=== PATIENT | male | born 1955 | race Caucasian/White ===

== ENCOUNTER 2023-10-18 10:45 | Emergency (ER) | payer OTHER ==
[2023-10-18 11:45] LABS: BASOPHILS ABSOLUTE AUTO 0.04 K/uL (0.00-0.10); BASOPHILS PERCENT AUTO 0.6 % (0.1-1.3); EOSINOPHILS ABSOLUTE AUTO 0.04 K/uL (0.00-0.40); EOSINOPHILS PERCENT AUTO 0.6 % (0.0-5.4); HEMATOCRIT 41.1 % (38.4-49.7); HEMOGLOBIN 13.4 g/dL (12.9-16.9); IMMATURE GRAN ABSOLUTE AUTO 0.03 K/uL (0.00-0.23); IMMATURE GRAN PERCENT AUTO 0.4 % (0.0-0.7); LYMPHOCYTES ABSOLUTE AUTO 1.25 K/uL (0.8-3.3); LYMPHOCYTES PERCENT AUTO 18.2 % (11.4-47.7); MEAN CORPUSCULAR HEMOGLOBIN 32.5 pg (31.6-35.5); MEAN CORPUSCULAR HGB CONC 32.6 g/dL (31.6-35.5); MEAN CORPUSCULAR VOLUME 99.8 fL (81.4-99.0); MONOCYTES ABSOLUTE AUTO 0.93 K/uL (0.20-0.90); MONOCYTES PERCENT AUTO 13.5 % (3.3-12.6); NEUTROPHILS ABSOLUTE AUTO 4.59 K/uL (1.0-7.6); NEUTROPHILS PERCENT AUTO 66.7 % (40.0-78.1); PLATELET COUNT,PLT 235 K/uL (130-375); RED BLOOD CELL COUNT 4.12 M/uL (4.14-5.76); WHITE BLOOD CELL COUNT,WBC 6.9 K/uL (3.2-11.0)
[2023-10-18] MEDS: Furosemide 40 MG/4 ML VIAL IVPUSH ONE (11:55)
[2023-10-18] MEDS: Sodium Chloride 0.9% 1,000 ML IV SCH (11:56)
[2023-10-18 12:09] LABS: INR 1.2; PROTHROMBIN TIME 11.7 sec (9.2-10.6)
[2023-10-18 12:26] LABS: APPEARANCE,URINE CLEAR (CLEAR); BILIRUBIN,URINE SMALL (NEGATIVE); COLOR,URINE YELLOW (YELLOW); GLUCOSE,URINE 500 mg/dL (NEGATIVE); KETONES,URINE 80 mg/dL (NEGATIVE); LEUKOCYTE ESTERASE,URINE NEGATIVE (NEGATIVE); NITRITE,URINE NEGATIVE (NEGATIVE); OCCULT BLOOD,URINE NEGATIVE (NEGATIVE); PH,URINE 5.5 (5.0-8.0); PROTEIN,URINE TRACE mg/dL (NEGATIVE); UROBILINOGEN,URINE 0.2 EU/dL (0.2-1.0)
[2023-10-18 12:29] LABS: CORONAVIRUS COVID-19 NAA NEGATIVE (NEGATIVE); INFLUENZA A NAA NEGATIVE (NEGATIVE); INFLUENZA B NAA NEGATIVE (NEGATIVE); RESPIRATORY SYNCYTIAL VIR NAA NEGATIVE (NEGATIVE)
[2023-10-18 12:42] LABS: AMORPHOUS SEDIMENT,URINE NOT SEEN; BACTERIA,URINE NOT SEEN; EPITHELIAL CELLS,URINE NOT SEEN; MUCUS,URINE NOT SEEN; RBC,URINE 0-5 (0-5); WBC,URINE NOT SEEN (0-5)
[2023-10-18 12:44] LABS: ALANINE AMINOTRANSFERASE,ALT 33 U/L (12-78); ALBUMIN 3.1 g/dL (3.4-5.0); ALKALINE PHOSPHATASE 138 U/L (46-116); ASPARTATE AMNIOTRANSFERASE,AST 13 U/L (15-37); BILIRUBIN TOTAL 0.7 mg/dL (0.2-1.0); BLOOD UREA NITROGEN,BUN 19 mg/dL (7-18); CALCIUM 8.6 mg/dL (8.5-10.1); CARBON DIOXIDE,CO2 18 mmol/L (21-32); CHLORIDE,CL 95 mmol/L (100-108); POTASSIUM,K 4.4 mmol/L (3.6-5.2); PROTEIN TOTAL,TP 6.2 g/dL (6.4-8.2); SODIUM,NA 132 mmol/L (140-148)
[2023-10-18 12:54] LABS: CREATININE 1.3 mg/dL (0.8-1.3); EST CRCL DRUG DOSING (CG) 54.59 mL/min; ESTIMATED GFR 59 mL/min (>60)
[2023-10-18 12:57] LABS: ANION GAP 23.4 mmol/L (5.0-14.0)
[2023-10-18 12:58] LABS: GLUCOSE RANDOM 440 mg/dL (74-106)
[2023-10-18] MEDS ORDERED: 50% Dextrose in Water 50 ML Syringe IVPUSH PRN (13:01)
[2023-10-18] MEDS ORDERED: Glucagon,Human Recombinant 1 MG Vial IM PRN (13:01)
[2023-10-18] MEDS: Furosemide 20 MG/2 ML VIAL IVPUSH ONE (13:13)
[2023-10-18] MEDS: Insulin Regular, Human 100 Units/ML 3 ML Vial IVPUSH ONE (13:14)
[2023-10-18] MEDS: Sodium Chloride 0.9% 80 ML IV SCH (13:52)
[2023-10-18] MEDS: Iopamidol 755 Mg/ML 100 ML Bottle IV SCH (13:52)
[2023-10-18] MEDS: Sodium Chloride 0.9% 10 ML Syringe FLUSH ONE (13:52)
[2023-10-18 15:38] LABS: BASE EXCESS VENOUS 1.8 mm/L; BICARBONATE,VENOUS 26.7 mmol/L; CARBOXYHEMOGLOBIN 2.6 % (0.0-1.6); METHEMOGLOBIN 0.5 %; OXYHEMOGLOBIN 67.8 %; PCO2 VENOUS 44.9 mm/Hg; PH,VENOUS 7.392 (7.350-7.450); PO2 VENOUS 39.6 mm/Hg; TOTAL HEMOGLOBIN 14.7 g/dL (13.5-18.0)
[2023-10-18] MEDS: LORazepam 2 MG/ML SDV IVPUSH ONE (18:45)
[2023-10-18] MEDS: LORazepam 2 MG/ML SDV ONE (18:54)
== END 2023-10-18 19:13 ==
LOC: JP.ED 10:45
DX: I50.9 Heart failure, unspecified (principal); R73.9 Hyperglycemia, unspecified; Z91.148 Patient's other noncompliance with medication regimen for other reason; Z79.52 Long term (current) use of systemic steroids; Z79.899 Other long term (current) drug therapy
CPT/HCPCS: 0241U; 36415; 71045; 71045-26; 71275; 71275-26; 80053; 81001; 82803; 82947; 83605; 83880; 84145; 84484; 85025; 85379; 85610; 93005; 96361; 96374; 96375; 96376; 99285-25; J1815-GY; J1940; J2060; J3490; J7030; Q9967

== ENCOUNTER 2024-03-29 11:01 | Emergency (ER) | payer OTHER, MEDICARE ==
[2024-03-29 11:54] LABS: BASOPHILS ABSOLUTE AUTO 0.06 K/uL (0.00-0.10); BASOPHILS PERCENT AUTO 0.7 % (0.1-1.3); EOSINOPHILS ABSOLUTE AUTO 0.35 K/uL (0.00-0.40); EOSINOPHILS PERCENT AUTO 3.9 % (0.0-5.4); HEMATOCRIT 34.8 % (38.4-49.7); HEMOGLOBIN 11.2 g/dL (12.9-16.9); IMMATURE GRAN PERCENT AUTO 0.2 % (0.0-0.7); LYMPHOCYTES ABSOLUTE AUTO 1.54 K/uL (0.8-3.3); LYMPHOCYTES PERCENT AUTO 17.2 % (11.4-47.7); MEAN CORPUSCULAR HEMOGLOBIN 30.1 pg (31.6-35.5); MEAN CORPUSCULAR HGB CONC 32.2 g/dL (31.6-35.5); MEAN CORPUSCULAR VOLUME 93.5 fL (81.4-99.0); MONOCYTES ABSOLUTE AUTO 1.15 K/uL (0.20-0.90); MONOCYTES PERCENT AUTO 12.9 % (3.3-12.6); NEUTROPHILS ABSOLUTE AUTO 5.82 K/uL (1.0-7.6); NEUTROPHILS PERCENT AUTO 65.1 % (40.0-78.1); PLATELET COUNT,PLT 261 K/uL (130-375); RED BLOOD CELL COUNT 3.72 M/uL (4.14-5.76); WHITE BLOOD CELL COUNT,WBC 8.9 K/uL (3.2-11.0)
[2024-03-29 11:55] LABS: IMMATURE GRAN ABSOLUTE AUTO 0.02 K/uL (0.00-0.23)
[2024-03-29 12:10] LABS: ANION GAP 7.7 mmol/L (5.0-14.0); CALCIUM 8.5 mg/dL (8.5-10.1); CREATININE 1.2 mg/dL (0.8-1.3); EST CRCL DRUG DOSING (CG) 59.14 mL/min; MAGNESIUM 1.9 mg/dL (1.8-2.4)
[2024-03-29 12:37] LABS: APPEARANCE,URINE CLEAR (CLEAR); BILIRUBIN,URINE NEGATIVE (NEGATIVE); COLOR,URINE YELLOW (YELLOW); GLUCOSE,URINE 500 mg/dL (NEGATIVE); KETONES,URINE NEGATIVE (NEGATIVE); LEUKOCYTE ESTERASE,URINE NEGATIVE (NEGATIVE); NITRITE,URINE NEGATIVE (NEGATIVE); OCCULT BLOOD,URINE MODERATE (NEGATIVE); PH,URINE 5.5 (5.0-8.0); PROTEIN,URINE NEGATIVE (NEGATIVE); UROBILINOGEN,URINE 0.2 EU/dL (0.2-1.0)
[2024-03-29 12:45] LABS: AMORPHOUS SEDIMENT,URINE NOT SEEN; BACTERIA,URINE RARE; EPITHELIAL CELLS,URINE RARE; MUCUS,URINE NOT SEEN; WBC,URINE 0-5 (0-5)
== END 2024-03-29 13:41 | disposition home or self-care (01) ==
LOC: JP.ED 11:01
DX: R41.0 Disorientation, unspecified (principal); R31.9 Hematuria, unspecified; I25.2 Old myocardial infarction; I10 Essential (primary) hypertension; E78.00 Pure hypercholesterolemia, unspecified; E11.42 Type 2 diabetes mellitus with diabetic polyneuropathy; Z86.73 Personal history of transient ischemic attack (TIA), and cerebral infarction without residual deficits; Z86.16 Personal history of COVID-19; Z95.5 Presence of coronary angioplasty implant and graft; Z79.82 Long term (current) use of aspirin; Z79.84 Long term (current) use of oral hypoglycemic drugs; Z79.4 Long term (current) use of insulin; Z79.01 Long term (current) use of anticoagulants; Z79.899 Other long term (current) drug therapy
CPT/HCPCS: 36415; 80048; 81001; 83735; 85025; 99285

== ENCOUNTER 2024-04-15 12:40 | Emergency (ER) | payer MEDICARE, OTHER ==
[2024-04-15] MEDS ORDERED: Sodium Chloride 23.4% 77 MEQ in Dextrose 10% in Water 500 ML IV ONE (12:44)
[2024-04-15 12:50] LABS: BASOPHILS ABSOLUTE AUTO 0.06 K/uL (0.00-0.10); BASOPHILS PERCENT AUTO 0.4 % (0.1-1.3); EOSINOPHILS ABSOLUTE AUTO 0.33 K/uL (0.00-0.40); EOSINOPHILS PERCENT AUTO 2.2 % (0.0-5.4); HEMOGLOBIN 14.8 g/dL (12.9-16.9); IMMATURE GRAN ABSOLUTE AUTO 0.06 K/uL (0.00-0.23); IMMATURE GRAN PERCENT AUTO 0.4 % (0.0-0.7); LYMPHOCYTES ABSOLUTE AUTO 2.05 K/uL (0.8-3.3); LYMPHOCYTES PERCENT AUTO 13.4 % (11.4-47.7); MEAN CORPUSCULAR HEMOGLOBIN 30.2 pg (31.6-35.5); MEAN CORPUSCULAR HGB CONC 32.2 g/dL (31.6-35.5); MEAN CORPUSCULAR VOLUME 93.9 fL (81.4-99.0); MONOCYTES ABSOLUTE AUTO 1.36 K/uL (0.20-0.90); MONOCYTES PERCENT AUTO 8.9 % (3.3-12.6); NEUTROPHILS ABSOLUTE AUTO 11.41 K/uL (1.0-7.6); NEUTROPHILS PERCENT AUTO 74.7 % (40.0-78.1); PLATELET COUNT,PLT 326 K/uL (130-375); WHITE BLOOD CELL COUNT,WBC 15.3 K/uL (3.2-11.0)
[2024-04-15] MEDS ORDERED: Dextrose 10% in Water 500 ML IV SCH (12:51)
[2024-04-15] MEDS: 50% Dextrose in Water 50 ML Syringe IVPUSH ONE ×2 (12:51)
[2024-04-15 13:13] LABS: A/G RATIO 0.9 (1.2-2.2); ALANINE AMINOTRANSFERASE,ALT 17 U/L (12-78); ALKALINE PHOSPHATASE 78 U/L (46-116); ANION GAP 6.6 mmol/L (5.0-14.0); ASPARTATE AMNIOTRANSFERASE,AST 13 U/L (15-37); BILIRUBIN TOTAL 0.9 mg/dL (0.2-1.0); BLOOD UREA NITROGEN,BUN 30 mg/dL (7-18); CALCIUM 9.7 mg/dL (8.5-10.1); CARBON DIOXIDE,CO2 31 mmol/L (21-32); CHLORIDE,CL 105 mmol/L (100-108); ESTIMATED GFR 80 mL/min (>60); GLUCOSE RANDOM 16 mg/dL (74-106); POTASSIUM,K 3.9 mmol/L (3.6-5.2); PROTEIN TOTAL,TP 8.7 g/dL (6.4-8.2); SODIUM,NA 143 mmol/L (140-148)
[2024-04-15] MEDS: Sodium Chloride 77 MEQ in Dextrose 10% in Water 500 ML IV ONE (13:17)
[2024-04-15] MEDS: 50% Dextrose in Water 50 ML Syringe ONE (14:37)
== END 2024-04-15 14:55 | disposition home or self-care (01) ==
LOC: JP.ED 12:40
DX: E11.649 Type 2 diabetes mellitus with hypoglycemia without coma (principal); I10 Essential (primary) hypertension; I25.2 Old myocardial infarction; E78.00 Pure hypercholesterolemia, unspecified; E11.40 Type 2 diabetes mellitus with diabetic neuropathy, unspecified; Z86.73 Personal history of transient ischemic attack (TIA), and cerebral infarction without residual deficits; Z95.1 Presence of aortocoronary bypass graft; Z79.82 Long term (current) use of aspirin; Z79.899 Other long term (current) drug therapy; Z79.01 Long term (current) use of anticoagulants; Z79.4 Long term (current) use of insulin; Z79.84 Long term (current) use of oral hypoglycemic drugs
CPT/HCPCS: 36415; 70450; 70450-26; 71046; 71046-26; 80053; 82947; 83605; 84484; 85025; 96361; 96374; 99284; 99285-25; J7131; J7799

== ENCOUNTER 2024-05-20 20:40 | Emergency (ER) | payer OTHER ==
[2024-05-20] MEDS: cloNIDine 0.1 MG Tab PO ONE (21:15)
== END 2024-05-20 22:30 | disposition home or self-care (01) ==
LOC: JP.ED 20:40
DX: I11.9 Hypertensive heart disease without heart failure (principal); I25.2 Old myocardial infarction; E78.00 Pure hypercholesterolemia, unspecified; E11.9 Type 2 diabetes mellitus without complications; Z79.82 Long term (current) use of aspirin; Z79.4 Long term (current) use of insulin; Z79.899 Other long term (current) drug therapy; Z86.16 Personal history of COVID-19; Z87.891 Personal history of nicotine dependence
CPT/HCPCS: 99284; A9270